=== PATIENT | male | born 1960 | race Two or more races ===

== ENCOUNTER 2018-09-05 23:05 | Emergency (ER) | payer MEDICARE, OTHER ==
[~2018-09-05] VITALS: Ht 167.6 cm; Wt 79.4 kg
--- NOTE | 2018-09-05 23:28 | NUR ---
PT A/OX4, PRESENTS TO THE ER W/ MULTIPLE COMPLAINTS. PRIMARY COMPLAINT: HEADACHE SECONDARY COMPLAINT: SORE THROAT TERTIARY COMPLAINT: LEFT GROIN PAIN ALL COMPLAINTS X 2 WEEKS. VSS. PT DENIES C/P, SOB, N/V/D, DIZZINESS ER MD AT BEDSIDE.
[2018-09-05 23:53] LABS: *BILIRUBIN,URIN NEGATIVE (NEGATIVE); *BLOOD, URINE NEGATIVE (NEGATIVE); *CLARITY,URINE CLEAR (CLEAR); *COLOR,URINE YELLOW (YELLOW); *KETONES,URINE TRACE (NEGATIVE); *UROBILINOGEN,URINE 0.2 E.U./dl (NORMAL); LEUKOCYTE ESTERASE ,URINE NEGATIVE (NEGATIVE); NITRITE, URINE NEGATIVE (NEGATIVE); PH,URINE 7.5 (5.0-8.0); UGLUCOSE NEGATIVE (NEGATIVE)
[2018-09-05 23:58] LABS: BACTERIA,URINE NONE SEEN /HPF (NONE SEEN); RBC,URINE NONE SEEN /HPF (0-3); SQUAMOUS EPITHELIAL CELL,UR NONE SEEN /HPF (NONE SEEN); WBC,URINE 0-3 /HPF (0-3)
--- NOTE | 2018-09-06 00:12 | NUR ---
[facility] AT BEDSIDE FOR PT UPDATE.
--- NOTE | 2018-09-06 00:19 | NUR ---
Patient discharged to home in stable conditon. Written and verbal after care instructions given. Patient verbalizes understanding of instructions. PT D/C W/ PRESCRIPTION. ALL BELONGINGS W/ PT. PT SELF-AMBULATED W/O DIFFICULTY.
[2018-09-06 00:21] VITALS: BP 142/88
== END 2018-09-06 00:21 | disposition home or self-care (01) ==
LOC: ER 23:07
DX: B34.9 Viral infection, unspecified (principal); R59.0 Localized enlarged lymph nodes; K21.9 Gastro-esophageal reflux disease without esophagitis; G89.29 Other chronic pain; M54.5 Low back pain; F17.200 Nicotine dependence, unspecified, uncomplicated
CPT/HCPCS: A4663

== ENCOUNTER 2019-03-06 22:38 | Emergency (ER) | payer MEDICARE, OTHER ==
[~2019-03-06] VITALS: Ht 167.6 cm; Wt 74.4 kg
--- NOTE | 2019-03-06 22:40 | NUR ---
Patient ambulated with stable gait. A/Ox4. Speech is clear, speaks in complete sentences. Patient came because he believes he is having a stroke due to the numbness/tingling in LUE's since 1500 today. Patient has a long hx of anxiety and depression. Patient states that he has had a long stressful day and possibly could be a panic/anxiety attack. Respiratory even and unlabored, no cough no sob. Denies any n/v/d. Patient in bed at lowest position, sr upx2, call light within reach. Fall precautions implemented per protocol.
[2019-03-06] MEDS ORDERED: ALPRAZOLAM 0.5 MG TABLET ONE (22:50)
[2019-03-06 23:00] LABS: BASOPHILS # (AUTO) 0.1 K/uL (0.0-8.0); BASOPHILS % (AUTO) 0.6 % (0.0-2.0); EOSINOPHILS # (AUTO) 0.2 K/uL (0.0-0.7); EOSINOPHILS % (AUTO) 1.3 % (0.0-7.0); HEMATOCRIT 48.3 % (36.7-47.1); HEMOGLOBIN 16.7 g/dL (12.5-16.3); LYMPHOCYTES # (AUTO) 4.1 K/uL (20.0-40.0); LYMPHOCYTES % (AUTO) 33.4 % (20.5-51.5); MEAN CORPUSCULAR HEMOGLOBIN 30.6 uug (23.8-33.4); MEAN CORPUSCULAR HGB CONC 35 g/dL (32.5-36.3); MEAN CORPUSCULAR VOLUME 88.5 fL (73.0-96.2); MONOCYTES % (AUTO) 7.9 % (0.0-11.0); NEUTROPHILS % (AUTO) 56.8 % (38.5-71.5); PLATELET COUNT (AUTO) 223 K/uL (152-348); RED BLOOD CELL COUNT(AUTO) 5.46 MIL/uL (4.06-5.63); WHITE BLOOD COUNT (AUTO) 12.4 K/uL (3.6-10.2)
[2019-03-06] MEDS ORDERED: IV NORMAL SALINE 1000 ML BAG IV ONE (23:00)
[2019-03-06] MEDS ORDERED: ALPRAZOLAM 0.25 MG TABLET PO ONE (23:00)
[2019-03-06 23:07] LABS: BILIRUBIN,DIRECT 0.1 mg/dL (0.0-0.2); BILIRUBIN,TOTAL 0.7 mg/dL (0.2-1.0); CREATININE 1.1 mg/dL (0.6-1.3); POTASSIUM 3.7 mmol/L (3.5-5.1); TOTAL PROTEIN, SERUM 7.1 g/dL (6.4-8.2)
--- NOTE | 2019-03-06 23:11 | NUR ---
Patient xfer'd down to CT in stable condition.
--- NOTE | 2019-03-06 23:23 | NUR ---
Patient back from CT in stable condition.
[2019-03-06] MEDS ORDERED: ASPIRIN 81 MG TAB.CHEW PO ONE (23:45)
[2019-03-06] MEDS ORDERED: ASPIRIN 81 MG TAB.CHEW ONE (23:47)
--- NOTE | 2019-03-07 00:01 | NUR ---
Patient discharged to home in stable conditon. Written and verbal after care instructions given. Patient verbalizes understanding of instructions. Patient ambulated with stable gait. Denies any distress. Instructed patient that he may not drive, his friend will be driving him home.
[2019-03-07 00:03] VITALS: BP 135/98
== END 2019-03-07 00:03 | disposition home or self-care (01) ==
LOC: ER 22:39
DX: F41.9 Anxiety disorder, unspecified (principal); R20.2 Paresthesia of skin; F32.9 Major depressive disorder, single episode, unspecified; F17.290 Nicotine dependence, other tobacco product, uncomplicated; Z71.6 Tobacco abuse counseling
CPT/HCPCS: 36415; 70030-TC; 70450; 71045; 85025; 85730; 93005; A4663; J7030